=== PATIENT | male | born 1985 | race African-American/Black ===

== ENCOUNTER 2016-12-20 00:12 | Emergency (ER) | payer SELFPAY ==
--- NOTE | 2016-12-20 00:27 | EDM.PDOC ---
ED HPI GENERAL MEDICAL PROBLEM - General Chief Complaint: Upper Extremity Injury/Pain Stated Complaint: RIGHT SHOULDER OUT OF SOCKET Time Seen by Provider: 12/20/16 00:26 Source of Information: Reports: Patient - History of Present Illness INITIAL COMMENTS - FREE TEXT/NARRATIVE: HISTORY AND PHYSICAL: History of present illness: [] Patient states he dislocated his right shoulder while picking up a cooler tonight pain as 4/10 nonradiating, he stumbled falling against a wall striking his right shoulder on the wall He states that he felt his shoulder come out of the socket however is able to move his shoulder freely on exam No other injury no fever nausea vomiting chills sweats Review of systems: As per history of present illness and below otherwise all systems reviewed and negative. Past medical history: As per history of present illness and as reviewed below otherwise noncontributory. Surgical history: As per history of present illness and as reviewed below otherwise noncontributory. Social history: No reported history of drug or alcohol abuse. Family history: As per history of present illness and as reviewed below otherwise noncontributory. Physical exam: HEENT: Atraumatic, normocephalic, pupils reactive, negative for conjunctival pallor or scleral icterus, mucous membranes moist, throat clear, neck supple, nontender, trachea midline. Lungs: Clear to auscultation, breath sounds equal bilaterally, chest nontender. Heart: S1S2, regular, negative for clicks, rubs, or JVD. Abdomen: Soft, nondistended, nontender. Negative for masses or hepatosplenomegaly. Negative for costovertebral tenderness. Pelvis: Stable nontender. Genitourinary: Deferred. Rectal: Deferred. Extremities: Atraumatic, negative for cords or calf pain. Neurovascular unremarkable. Right shoulder no pain with hip movement or range of motion of the shoulder elbow and wrist no redness warmth swelling no open lesion or bruising entire limb neurovascular intact Neuro: Awake, alert, oriented. Cranial nerves II through XII unremarkable. Cerebellum unremarkable. Motor and sensory unremarkable throughout. Exam nonfocal. Diagnostics: [] Right shoulder complete Therapeutics: [] Impression: [] Right Shoulder pain A.c. joint separation right shoulder Definitive disposition and diagnosis as appropriate pending reevaluation and review of above. Right Shoulder Pain Score (Numeric/FACES): 4 - Related Data Allergies Allergy/AdvReac Type Severity Reaction Status Date / Time No Known Allergies Allergy Verified 12/20/16 00:25 Home Meds: Home Meds . [No Known Home Meds] 12/20/16 [History] Review of Systems - Review of Systems Review Of Systems: ROS reveals no pertinent complaints other than HPI. Trauma Exam - Physical Exam Exam: See Below Course - Vital Signs Last Recorded V/S: Last Vital Signs Temp 36.7 C 12/20/16 00:25 Pulse 75 12/20/16 00:25 Resp 18 12/20/16 00:25 BP 139/75 12/20/16 00:25 Pulse Ox 97 12/20/16 00:25 - Orders/Labs/Meds Orders: Active Orders 24 hr Category Date Time Status Shoulder Comp Rt [CR] Stat Exams 12/20/16 00:26 Taken Departure - Departure Time of Disposition: 02:22 Disposition: Home, Self-Care 01 Condition: good Clinical Impression: Acromioclavicular (AC) joint injury - Discharge Information Forms: ED Department Discharge Additional Instructions: Sling for comfort Ibuprofen 400 mg 3 times daily 7-10 days Recommend lites left hand duty only Return if symptoms persist or worsen Followup with orthopedist in one week [facility] [address], [address] [place] [address] my orthopedic The following information is given to patients seen in the emergency department who are being discharged to home. This information is to outline your options for follow-up care. We provide all patients seen in our emergency department with a follow-up referral. The need for follow-up, as well as the timing and circumstances, are variable depending upon the specifics of your emergency department visit. If you don't have a primary care physician on staff, we will provide you with a referral. We always advise you to contact your personal physician following an emergency department visit to inform them of the circumstance of the visit and for follow-up with them and/or the need for any referrals to a consulting specialist. The emergency department will also refer you to a specialist when appropriate. This referral assures that you have the opportunity for follow-up care with a specialist. All of these measure are taken in an effort to provide you with optimal care, which includes your follow-up. Under all circumstances we always encourage you to contact your private physician who remains a resource for coordinating your care. When calling for follow-up care, please make the office aware that this follow-up is from your recent emergency room visit. If for any reason you are refused follow-up, please contact the [facility] emergency department at and asked to speak to the emergency department charge nurse. - My Orders Last 24 Hours: My Active Orders 12/20/16 00:26 Shoulder Comp Rt [CR] Stat - Assessment/Plan Last 24 Hours: My Active Orders 12/20/16 00:26 Shoulder Comp Rt [CR] Stat
[2016-12-20 02:46] VITALS: BP 124/76
--- NOTE | 2016-12-21 13:46 | CR ---
EXAM DATE: 12/20/16 PATIENT'S AGE: 31 Patient: NESTOR EUGENE Facility: [place], [place] Site . Site : 1985 Study: XRay Shoulder Right [id number]/[id number] 1:50:06 AM Ordering Physician: Micki Torres Final Report: Indication: Lifting injury. Technique: Right shoulder two views. Comparison: None. Findings: No evidence of acute fracture. There is apparent widening of the coracoclavicular distance and mild superior migration of the distal clavicle relative to the acromion. The glenohumeral joint is intact. Osseous structures and soft tissues are otherwise unremarkable. Impression: Findings worrisome for acromioclavicular joint separation. No evidence of acute fracture. Dictated by Nilson Vizcarra MD @ 12/20/2016 2:10:10 AM Dictated by: Nilson Vizcarra MD @ 12/20/2016 02:10:21 (Electronic Signature) Report Signed by Proxy. [email or web address]
== END 2016-12-20 02:35 | disposition home or self-care (01) ==
LOC: MW.ED 00:12
DX: S49.91XA Unspecified injury of right shoulder and upper arm, initial encounter (principal); W01.198A Fall on same level from slipping, tripping and stumbling with subsequent striking against other object, initial encounter
CPT/HCPCS: 73030; 99283; A4566; 99282